=== PATIENT | male | born 1975 ===

== ENCOUNTER 2016-09-17 09:40 | Observation (INO) | payer OTHER ==
[2016-09-17 09:48] VITALS: RESP 18
[2016-09-17] MEDS ORDERED: Iohexol 240 (50 ml) PO ONE (10:16)
[2016-09-17] MEDS ORDERED: Sodium Chloride 0.9% 1,000 ML IV STA (10:16)
[2016-09-17] MEDS ORDERED: Iohexol 240 (50 ml) ONE (10:22)
--- NOTE | 2016-09-17 10:22 | ED PDOC ---
Syncope/Near Syncope/Dizziness Time Seen by Provider: 09/17/16 09:56 Chief Complaint (Nursing): Syncope Chief Complaint (Provider): Syncope History Per: Patient History/Exam Limitations: no limitations Onset/Duration Of Symptoms: Days (Today) Current Symptoms Are (Timing): Better Additional Complaint(s): Pt. felt fine yesterday during the day. He then started getting abd bubbling pain and non bloody diarrhea last night. Also mild nausea and headache, not worst in his life. He went to bed with it and woke feeling better. He had some breakfast and went to the train. He was feeling light-headed and kept his eyes closed. Next thing he remembers is being on the ground with people around him. At no time did he have any numbness, tingles, chest pain, dyspnea, arm or leg pain. Currently feels week and has chills. Light-headed mild. Possible food he ate yesterday, per pt. Past Medical History Reviewed: Nursing Documentation, Vital Signs Vital Signs: Last Vital Signs Temp 98 F 09/17/16 09:45 Pulse 80 09/17/16 09:45 Resp 18 09/17/16 09:45 BP 111/61 09/17/16 09:45 Pulse Ox 96 09/17/16 09:45 - Medical History PMH: No Chronic Diseases - Surgical History Surgical History: No Surg Hx - Family History Family History: States: Unknown Family Hx - Living Arrangements Living Arrangements: With Family - Social History Current smoker - smoking cessation education provided: No Alcohol: None Drugs: Denies - Home Medications Home Medications: Ambulatory Orders Medication Instructions Recorded No Known Home Med 09/17/16 - Allergies Allergies/Adverse Reactions: Allergies Allergy/AdvReac Type Severity Reaction Status Date / Time No Known Allergies Allergy Verified 09/17/16 09:48 Review of Systems ROS Statement: Except As Marked, All Systems Reviewed And Found Negative Constitutional: Positive for: Chills, Weakness Gastrointestinal: Positive for: Nausea, Abdominal Pain, Diarrhea Neurological: Positive for: Weakness, Headache, Dizziness Physical Exam - Reviewed Nursing Documentation Reviewed: Yes Vital Signs Reviewed: Yes - Physical Exam Appears: Positive for: Non-toxic, No Acute Distress Head Exam: Positive for: ATRAUMATIC, NORMAL INSPECTION, NORMOCEPHALIC Skin: Positive for: Normal Color, Warm, DRY Eye Exam: Positive for: EOMI, Normal appearance, PERRL ENT: Positive for: Normal ENT Inspection Neck: Positive for: Normal, Painless ROM, Supple Cardiovascular/Chest: Positive for: Regular Rate, Rhythm Respiratory: Positive for: CNT, Normal Breath Sounds Gastrointestinal/Abdominal: Positive for: Bowel Sounds, Soft, Tenderness (mild diffuse) Back: Positive for: Normal Inspection. Negative for: L CVA Tenderness, R CVA Tenderness Extremity: Positive for: Normal ROM. Negative for: Tenderness, Pedal Edema Neurologic/Psych: Positive for: Alert, reimbursement representative II-XII, Oriented. Negative for: Motor/Sensory Deficits, Facial Droop - Laboratory Results Result Diagrams: 09/17/16 11:14 09/17/16 11:14 Interpretation Of Abn Labs: no acute - ECG ECG: Positive for: Interpreted By Me, Viewed By Me ECG Rhythm: Positive for: Normal QRS, Sinus Rhythm O2 Sat by Pulse Oximetry: 96 Pulse Ox Interpretation: Normal - CT Scan/US head Other Rad Studies (CT/US): Read By Radiologist Other Rad Interpretation: no acute ED OBSERVATION Date of observation admission: 09/17/16 Time of observation admission: 10:24 - Observation admission statement Patient is being placed in observation because:: Dizziness - Goals of Observation Goals of observation are:: eval dizzy and syncope with abd pain
[2016-09-17 11:41] LABS: BASO % 0.3 % (0.0-2.0); HEMOGLOBIN 14.2 g/dL (12.0-18.0); LYMPH # 1.1 K/uL (1.0-4.3); LYMPH % 10.4 % (20.0-40.0); MEAN CELL VOLUME 86.9 fl (80.0-94.0); MEAN CORPUSCULAR HEMOGLOBIN 29.5 pg (27.0-31.0); MEAN PLATELET VOLUME 10.6 fl (7.2-11.7); MONO # 0.5 K/uL (0.0-0.8); MONO % 5.3 % (0.0-10.0); NEUT # 8.6 K/uL (1.8-7.0); RBC 4.8 Mil/uL (4.40-5.90); RED CELL DISTRIBUTION WIDTH 13.6 % (11.5-14.5); WHITE BLOOD COUNT 10.2 K/uL (4.8-10.8)
[2016-09-17 12:07] LABS: ALB/GLOB RATIO 1.6 (1.0-2.1); ALBUMIN 4.5 g/dL (3.5-5.0); ALT/SGPT 62 U/L (21-72); AST/SGOT 39 U/L (17-59); BLOOD UREA NITROGEN 18 mg/dl (9-20); CALCIUM 9.2 mg/dL (8.4-10.2); GFR AFRICAN-AMERICAN > 60; GFR NON-AFRICAN AMERICAN > 60; LIPASE 90 U/L (23-300)
[2016-09-17] MEDS ORDERED: Sodium Chloride 0.9% 50 ML IV ONE (13:30)
[2016-09-17] MEDS ORDERED: Iohexol 300 100 ML IJ ONE (13:30)
--- NOTE | 2016-09-17 14:13 | CT ---
PROCEDURE: CT HEAD WITHOUT CONTRAST. HISTORY: headache COMPARISON: None available. TECHNIQUE: Axial computed tomography images were obtained through the head/brain without intravenous contrast. Radiation dose: Total exam DLP = 919.52 mGy-cm. This CT exam was performed using one or more of the following dose reduction techniques: Automated exposure control, adjustment of the mA and/or kV according to patient size, and/or use of iterative reconstruction technique. FINDINGS: HEMORRHAGE: No intracranial hemorrhage. BRAIN: No mass effect or edema. No atrophy or chronic microvascular ischemic changes. VENTRICLES: Unremarkable. No hydrocephalus. CALVARIUM: Unremarkable. PARANASAL SINUSES: Unremarkable as visualized. No significant inflammatory changes. MASTOID AIR CELLS: Unremarkable as visualized. No inflammatory changes. OTHER FINDINGS: None. IMPRESSION: Unremarkable CT examination of the head no intracranial mass, hemorrhage or evidence of acute infarct.
[2016-09-17 14:17] LABS: BARBITURATES, UR NEGATIVE (NEGATIVE); BENZODIAZEPINES, UR NEGATIVE (NEGATIVE)
[2016-09-17 14:20] LABS: OPIATES, UR NEGATIVE (NEGATIVE)
[2016-09-17 14:21] LABS: PHENCYCLIDINE, UR NEGATIVE (NEGATIVE)
--- NOTE | 2016-09-17 14:38 | CT ---
PROCEDURE: CT Abdomen and Pelvis with contrast HISTORY: abd pain COMPARISON: None. TECHNIQUE: Contrast dose: Omnipaque 300, 95 cc Radiation dose: Total exam DLP = 565 mGy-cm. This CT exam was performed using one or more of the following dose reduction techniques: Automated exposure control, adjustment of the mA and/or kV according to patient size, and/or use of iterative reconstruction technique. FINDINGS: LOWER THORAX: Unremarkable. LIVER: Unremarkable. No gross lesion or ductal dilatation. GALLBLADDER AND BILE DUCTS: Unremarkable. PANCREAS: Unremarkable. No gross lesion or ductal dilatation. SPLEEN: Unremarkable. ADRENALS: Unremarkable. No mass. KIDNEYS AND URETERS: Unremarkable. No hydronephrosis. No solid mass. VASCULATURE: Unremarkable. No aortic aneurysm. BOWEL: Prominent mural thickening seen in the large bowel from the cecum to the proximal portion of the splenic flexure without abscess or free air. Limited local pericolic reaction is appreciated in the pattern is most compatible with segmental colitis of indeterminate etiology. Consider infectious or inflammatory causes with ischemia or neoplasm not completely excluded but not necessarily favored either. . No obstruction. APPENDIX: Normal appendix. PERITONEUM: Unremarkable. No free fluid. No free air. LYMPH NODES: Unremarkable. No enlarged lymph nodes. BLADDER: Unremarkable. REPRODUCTIVE: Unremarkable. BONES: No acute fracture. OTHER FINDINGS: None. IMPRESSION: Findings most compatible segmental colitis affecting the right katelin and transverse colon segments without abscess or free air appreciate this time. No bowel obstruction evident grossly. Further clinical correlation is advised including possible lower endoscopy. Please see discussion above.
[2016-09-17 15:01] VITALS: BP 109/68; PULSE 61; TEMP 98.2
[2016-09-17 15:23] VITALS: O2SAT 96
--- NOTE | 2016-09-18 13:51 | CARD ---
APPROVED REPORT EKG Measurement Heart [id number] <Conclusion> Normal sinus rhythm Abnormal QRS-T angle, consider primary T wave abnormality Abnormal ECG
== END 2016-09-17 15:45 | disposition home or self-care (01) ==
LOC: H.ER 09:40 → H.EROBSV 10:16
PROVIDERS: ADMIT Emergency Medicine; ATTEND Emergency Medicine
DX: R55 Syncope and collapse (principal); F17.210 Nicotine dependence, cigarettes, uncomplicated